=== PATIENT | female | born 1960 | race Caucasian/White ===

== ENCOUNTER 2017-04-05 07:40 | Emergency (ER) | payer OTHER ==
[2017-04-05 09:40] VITALS: BP 105/55
== END 2017-04-05 09:40 | disposition home or self-care (01) ==
LOC: ED 07:40
DX: F41.9 Anxiety disorder, unspecified (principal); I10 Essential (primary) hypertension; R10.13 Epigastric pain; E11.9 Type 2 diabetes mellitus without complications; Z79.899 Other long term (current) drug therapy; Z79.84 Long term (current) use of oral hypoglycemic drugs
CPT/HCPCS: Q0092

== ENCOUNTER 2017-12-13 16:31 | Emergency (ER) | payer OTHER ==
[~2017-12-13] VITALS: Ht 172.7 cm; Wt 82.1 kg
[2017-12-13 17:17] VITALS: Ht 172.7 cm; Wt 82.1 kg
[2017-12-13 18:39] LABS: PLATELET COUNT 286 x10^3mcL (130-400); RED CELL DISTRIBUTION WIDTH 14.5 % (11.5-14.5)
[2017-12-13 18:52] LABS: CALCIUM 9.5 mg/dL (8.5-10.1); CARBON DIOXIDE 30.5 mmol/L (21-32); CHLORIDE SERUM 101 mmol/L (98-107); CREATININE SERUM 0.7 mg/dL (0.6-1.0); GFR1 > 60 mL/min; GLUCOSE SERUM 115 mg/dL (74-106); SODIUM SERUM 138 mmol/L (136-145)
[2017-12-13 18:54] LABS: POTASSIUM SERUM 4.2 mmol/L (3.5-5.1)
[2017-12-13 18:57] LABS: ALBUMIN 4.2 g/dL (3.4-5.0); ALKALINE PHOSPHATASE 70 U/L (46-116); ALT/SGPT 37 U/L (14-59); AST/SGOT 20 U/L (15-37); BILIRUBIN TOTAL 0.2 mg/dL (0.20-1.00); LIPASE 80 IU/L (73-393)
[2017-12-13 21:58] VITALS: BP 118/67
== END 2017-12-13 21:58 | disposition home or self-care (01) ==
LOC: ED 16:31
PROVIDERS: Emergency Medicine
DX: R10.13 Epigastric pain (principal); R11.0 Nausea; I10 Essential (primary) hypertension; E11.9 Type 2 diabetes mellitus without complications
CPT/HCPCS: J1885; J7030; Q0092; Q0162